=== PATIENT | male | born 1975 | race Hispanic/Latino ===

== ENCOUNTER 2021-12-08 20:34 | Emergency (ER) | payer SELFPAY ==
[2021-12-08] MEDS ORDERED: ONDANSETRON 4 MG/2 ML VIAL ONE (23:03)
[2021-12-08 23:18] LABS: Absolute Lymphocytes (CBC) 0.5 K/uL (0.7-4.9); Hematocrit 47.3 % (39.6-49.0); Lymphocytes % 3.6 % (15.3-44.8); RBC Red Blood Cell Count 5.43 M/uL (4.33-5.43)
[2021-12-08 23:34] LABS: Albumin 4.3 g/dL (3.4-5.0); Bilirubin Total 1.1 mg/dL (0.2-1.0); Protein, Total 7.9 g/dL (6.4-8.2)
[2021-12-08 23:35] LABS: Potassium 4.4 mmol/L (3.5-5.1)
[2021-12-08] MEDS ORDERED: FAMOTIDINE 20 MG/2 ML VIAL IV ONE (23:49)
[2021-12-08] MEDS ORDERED: MORPHINE 4 MG/ML SYR ONE (23:49)
[2021-12-08] MEDS ORDERED: NA CHLORIDE 0.9% 1,000 ML ONE (23:50)
--- NOTE | 2021-12-09 02:57 | EDPHYS ---
Physician Documentation [facility] Name: Mike Cotter Age: 46 yrs Sex: Male : 1975 Arrival Date: 12/08/2021 Time: 20:37 Bed 24 Private MD: ED Physician Davin Salas HPI: 12/09 07:53 This 46 yrs old Male presents to ER via Wheelchair with complaints of kdr Abdominal Pain, Vomiting/Diarrhea. 07:53 The patient presents to the emergency department with nausea, that is mild, vomiting, kdr that is intermittent, diarrhea, that is intermittent, abdominal pain, of the abdomen diffusely, described as achy, burning, crampy, intermittent, vague,\E\ waxing and waning, and does not radiate. Onset: The symptoms/episode began/occurred suddenly, just prior to arrival. Possible causes: bad food exposure, Seafood at work. Then an hour later he started to have nausea vomiting and diarrhea. The symptoms are aggravated by food , The symptoms are alleviated by nothing. Associated signs and symptoms: The patient has no apparent associated signs or symptoms. Severity of symptoms: At their worst the symptoms were mild moderate just prior to arrival, in the emergency department the symptoms have improved markedly. The patient has not experienced similar symptoms in the past. The patient has not recently seen a physician. Historical: - Allergies: 12/08 21:47 No Known Allergies; al4 - Immunization history:: Adult Immunizations up to date, Client reports receiving the 2nd dose of the Covid vaccine, moderna. - Social history:: Smoking status: Patient denies any tobacco usage or history of. ROS: 12/09 07:53 Constitutional: Negative for fever, chills, and weight loss, Eyes: Negative for injury, kdr pain, redness, and discharge, Neck: Negative for injury, pain, and swelling, Cardiovascular: Negative for chest pain, palpitations, and edema, Respiratory: Negative for shortness of breath, cough, wheezing, and pleuritic chest pain, Back: Negative for injury and pain, : Negative for injury, bleeding, discharge, and swelling, MS/Extremity: Negative for injury and deformity, Skin: Negative for injury, rash, and discoloration, Neuro: Negative for headache, weakness, numbness, tingling, and seizure activity. Psych: Negative for depression, anxiety, suicide ideation, homicidal ideation, and hallucinations, Allergy/Immunology: Negative for hives, rash, and allergies, Endocrine: Negative for neck swelling, polydipsia, polyuria, polyphagia, and marked weight changes, Hematologic/Lymphatic: Negative for swollen nodes, abnormal bleeding, and unusual bruising. Abdomen/GI: Positive for abdominal pain, nausea, vomiting, and diarrhea, Negative for abdominal cramps, abdominal distension, anorexia, dysphagia, black/tarry stool, rectal pain, rectal bleeding, bowel incontinence. Exam: 07:53 Constitutional: This is a well developed, well nourished patient who is awake, alert, kdr and in no acute distress. Head/Face: Normocephalic, atraumatic. Eyes: Pupils equal round and reactive to light, extra-ocular motions intact. Lids and lashes normal. Conjunctiva and sclera are non-icteric and not injected. Cornea within normal limits. Periorbital areas with no swelling, redness, or edema. Neck: Trachea midline, no thyromegaly or masses palpated, and no cervical lymphadenopathy. Supple, full range of motion without nuchal rigidity, or vertebral point tenderness. No Meningismus. Chest/axilla: Normal chest wall appearance and motion. Nontender with no deformity. No lesions are appreciated. Cardiovascular: Regular rate and rhythm with a normal S1 and S2. No gallops, murmurs, or rubs. Normal PMI, no JVD. No pulse deficits. Respiratory: Lungs have equal breath sounds bilaterally, clear to auscultation and percussion. No rales, rhonchi or wheezes noted. No increased work of breathing, no retractions or nasal flaring. Back: No spinal tenderness. No costovertebral tenderness. Full range of motion. Skin: Warm, dry with normal turgor. Normal color with no rashes, no lesions, and no evidence of cellulitis. MS/ Extremity: Pulses equal, no cyanosis. Neurovascular intact. Full, normal range of motion. Neuro: Awake and alert, GCS 15, oriented to person, place, time, and situation. Cranial nerves II-XII grossly intact. Motor strength 5/5 in all extremities. Sensory grossly intact. Cerebellar exam normal. Normal gait. Psych: Awake, alert, with orientation to person, place and time. Behavior, mood, and affect are within normal limits. 07:53 Abdomen/GI: Inspection: abdomen appears normal, Bowel sounds: diminished, in all quadrants, Palpation: soft, mild abdominal tenderness, in the abdomen diffusely, rebound tenderness, is not appreciated, voluntary guarding, is not appreciated, involuntary guarding, is not appreciated. Vital Signs: 12/08 21:43 BP 97 / 72; Pulse 87; Resp 20 S; Temp 97.9; Pulse Ox 98% on R/A; Weight 79.38 kg (R); al4 Height 5 ft. 8 in. (172.72 cm) (R); 22:55 BP 121 / 86; Pulse 99; Resp 18; Pulse Ox 100% on R/A; ss7 23:45 BP 108 / 75; Pulse 101; Resp 18; Pulse Ox 96% on R/A; ss7 12/09 01:40 BP 104 / 78; Pulse 93; Resp 16; Pulse Ox 95% on R/A; mw2 03:17 BP 115 / 73; Pulse 101; Resp 16 S; Temp 99.8(TE); Pulse Ox 98% on R/A; bb 12/08 21:43 Body Mass Index 26.61 (79.38 kg, 172.72 cm) al4 MDM: 02:57 Patient medically screened. kdr 07:53 Data reviewed: vital signs, nurses notes, lab test result(s), radiologic studies. kdr Counseling: I had a detailed discussion with the patient and/or guardian regarding: the historical points, exam findings, and any diagnostic results supporting the discharge/admit diagnosis, lab results, radiology results, the need for outpatient follow up. 12/08 22:54 Order name: CBC with Diff; Complete Time: 23:38 7 12/08 22:54 Order name: CMP; Complete Time: 23:38 ss7 12/08 22:54 Order name: Lipase; Complete Time: 23:38 7 12/08 22:59 Order name: Flu [facility] 12/09 00:17 Order name: CT Abd/Pelvis - IV Contrast Only kdr 12/08 22:54 Order name: IV Saline Lock; Complete Time: 22:57 7 12/08 22:54 Order name: Labs collected and sent; Complete Time: 22:57 ss7 Administered Medications: 12/08 23:05 Drug: Zofran (Ondansetron) 4 mg Route: IVP; Site: right antecubital; ss7 23:55 Drug: morphine 4 mg Route: IVP; Site: right antecubital; ss7 23:55 Drug: NS 0.9% 1000 ml Route: IV; Rate: 1 bolus; Site: right antecubital; ss7 23:58 Drug: Pepcid (famotidine) 20 mg Route: IVP; Site: right antecubital; ss7 Disposition Summary: 12/09/21 02:57 Discharge Ordered Location: Home kdr Problem: new kdr Symptoms: have improved kdr Condition: Stable kdr Diagnosis - Abdominal pain, Generalized kdr - Upper abdominal pain, unspecified kdr - Vomiting kdr - Nausea with vomiting, unspecified kdr Followup: kdr - With: Private Physician - When: 2 - 3 days - Reason: If symptoms return, Further diagnostic work-up, Recheck today's complaints, Continuance of care, Re-evaluation by your physician Discharge Instructions: - Discharge Summary Sheet kdr - Nausea and Vomiting, Adult kdr - Abdominal Pain, Adult, [id number] kdr Forms: - Medication Reconciliation Form kdr - Thank You Letter kdr - Antibiotic Education kdr - Prescription Opioid Use kdr Prescriptions: - Zofran 4 mg Oral Tablet - take 1 tablet by ORAL route every 4-6 hours As needed; 16 tablet; Refills: 0, kdr Product Selection Permitted - Pepcid 20 mg Oral Tablet - take 1 tablet by ORAL route every 12 hours As needed; 116 tablet; Refills: 0, kdr Product Selection Permitted Signatures: Dispatcher [employer] Davin Farfan MD MD kdr Ledbetter, Alexis al4 Smith, Shana RN RN ss7
--- NOTE | 2021-12-09 02:57 | ER ---
Nurse's Notes [facility] Name: Mike Cotter Age: 46 yrs Sex: Male : 1975 Arrival Date: 12/08/2021 Time: 20:37 Bed 24 Private MD: Diagnosis: Abdominal pain, Generalized;Upper abdominal pain, unspecified;Vomiting;Nausea with vomiting, unspecified Presentation: 12/08 21:43 Chief complaint: Patient states: ate seafood at work today and 1 hour later patient was al4 throwing up with diarrhea, patient feels fatigued, and pain in stomach. Coronavirus screen: Vaccine status: Patient reports receiving the 2nd dose of the covid vaccine. moderna. Ebola Screen: No symptoms or risks identified at this time. Initial Sepsis Screen: Does the patient meet any 2 criteria? No. Patient's initial sepsis screen is negative. Does the patient have a suspected source of infection? No. Patient's initial sepsis screen is negative. Risk Assessment: Do you want to hurt yourself or someone else? Patient reports no desire to harm self or others. Onset of symptoms was December 08, 2021. 21:43 Method Of Arrival: Wheelchair al4 21:43 Acuity: SPARKLE 3 al4 Triage Assessment: 21:47 General: Appears in no apparent distress. uncomfortable, Behavior is calm, cooperative. al4 Pain: Complains of pain in abdomen. Neuro: Level of Consciousness is awake, alert, obeys commands, Oriented to person, place, time, situation. Cardiovascular: Capillary refill < 3 seconds Patient's skin is warm and dry. Respiratory: Airway is patent Respiratory effort is unlabored, Respiratory pattern is regular. GI: Reports diarrhea, nausea, vomiting. Musculoskeletal: Circulation, motion, and sensation intact. Historical: - Allergies: 21:47 No Known Allergies; al4 - Immunization history:: Adult Immunizations up to date, Client reports receiving the 2nd dose of the Covid vaccine, moderna. - Social history:: Smoking status: Patient denies any tobacco usage or history of. Screenin:57 Abuse screen: Denies threats or abuse. Nutritional screening: No deficits noted. ss7 Tuberculosis screening: No symptoms or risk factors identified. Fall Risk IV access (20 points). Assessment: 22:54 General: Appears ill, Behavior is calm, cooperative, appropriate for age. Pain: ss7 Complains of pain in abdomen. Neuro: No deficits noted. Cardiovascular: Heart tones S1 S2. Respiratory: Breath sounds are clear bilaterally. GI: Bowel sounds present X 4 quads. Abd is soft Abdomen is tender to palpation in umbilical area, right lower quadrant and left lower quadrant. GI: Reports diarrhea, nausea, vomiting. : No deficits noted. EENT: No deficits noted. Derm: No deficits noted. Musculoskeletal: No deficits noted. 12/09 00:30 Reassessment: Patient is alert, oriented x 3, equal unlabored respirations, skin bb warm/dry/pink. resting quietly awaiting diagnostic results, family at bedside. 03:17 Reassessment: Patient is alert, oriented x 3, equal unlabored respirations, skin bb warm/dry/pink. pt verbalized understanding of and agrees to plan of care discharge instructions given pt ambulated with steady gait to exit accompanied by spouse. Vital Signs: 12/08 21:43 BP 97 / 72; Pulse 87; Resp 20 S; Temp 97.9; Pulse Ox 98% on R/A; Weight 79.38 kg (R); al4 Height 5 ft. 8 in. (172.72 cm) (R); 22:55 BP 121 / 86; Pulse 99; Resp 18; Pulse Ox 100% on R/A; ss7 23:45 BP 108 / 75; Pulse 101; Resp 18; Pulse Ox 96% on R/A; ss7 12/09 01:40 BP 104 / 78; Pulse 93; Resp 16; Pulse Ox 95% on R/A; mw2 03:17 BP 115 / 73; Pulse 101; Resp 16 S; Temp 99.8(TE); Pulse Ox 98% on R/A; bb 12/08 21:43 Body Mass Index 26.61 (79.38 kg, 172.72 cm) al4 ED Course: 12/08 20:37 Patient arrived in ED. es 21:47 Triage completed. al4 21:47 Arm band placed on right wrist. al4 22:41 Krystina Travis, TORIBIO is Primary Nurse. ss7 22:55 Davin Salas MD is Attending Physician. kdr 22:57 Patient has correct armband on for positive identification. Bed in low position. Call ss7 light in reach. Adult w/ patient. Pulse ox on. NIBP on. 22:57 CBC with Diff Sent. ss7 22:57 CMP Sent. ss7 22:57 Lipase Sent. ss7 22:57 No provider procedures requiring assistance completed. Inserted saline lock: 20 gauge ss7 in right antecubital area, using aseptic technique. 23:05 Flu Sent. ss7 23:38 Flu Sent. ss7 12/09 00:07 Report given to TORIBIO Campos. ss7 00:57 CT Abd/Pelvis - IV Contrast Only In Process Unspecified. EDMS 03:17 IV discontinued, intact, bleeding controlled, No redness/swelling at site. Pressure bb dressing applied. Administered Medications: 12/08 23:05 Drug: Zofran (Ondansetron) 4 mg Route: IVP; Site: right antecubital; ss7 23:55 Drug: morphine 4 mg Route: IVP; Site: right antecubital; ss7 23:55 Drug: NS 0.9% 1000 ml Route: IV; Rate: 1 bolus; Site: right antecubital; ss7 23:58 Drug: Pepcid (famotidine) 20 mg Route: IVP; Site: right antecubital; ss7 Outcome: 12/09 02:57 Discharge ordered by . kdr 03:17 Discharged to home ambulatory, with family. bb 03:17 Condition: stable 03:17 Discharge instructions given to patient, Instructed on discharge instructions, follow up and referral plans. medication usage, Demonstrated understanding of instructions, follow-up care, medications, Prescriptions given X 2. 03:18 Patient left the ED. bb Signatures: Dispatcher [employer] EDMS Davin Salas MD MD kdr Salyer, Edna es Ballard, Brenda, RN RN bb Bertrand Escudero mw2 Ethan Root Shana, RN RN ss7
[2021-12-09 03:51] VITALS: BP 115/73; TEMP 99.8; O2SAT 98
--- NOTE | 2021-12-09 21:15 | RAD REPORT ---
EXAM DESCRIPTION: CT - Abdomen Pelvis W Contrast - 12/09/2021 5:04 am CLINICAL HISTORY: 46 years, Male, ABD PAIN COMPARISON: None. TECHNIQUE: Contrast-enhanced images of the abdomen and pelvis were performed utilizing 5 mm slice th ickness at 5 mm interval reconstruction from the lung bases to the ischial tuberosities after the adm inistration of IV contrast. In addition multiplanar reformats in the coronal and sagittal plane were obtained and reviewed. This exam was performed according to our departmental dose-optimization protocol, which includes auto mated exposure control, adjustment of the mA and/or kV according to patient size and/or use of iterat bert reconstruction technique. FINDINGS: The lung bases demonstrate very minimal dependent atelectatic changes posterior CP angles. The liver demonstrated decreased attenuation with the presence of several tiny hypodensities througho ut the right and left hepatic lobe most likely corresponding to perhaps a tiny small cysts although t oo small to characterize by CT criteria. Otherwise the liver, gallbladder, pancreas, spleen and adren al glands demonstrate to be unremarkable, no focal lesions are noted. The kidneys demonstrate normal uptake of contrast media. There is minimal cortical deformity within t he upper/midpole left kidney perhaps suggesting scarring. No evidence for nephrolithiasis and/or hydr onephrosis. Grossly the unopacified stomach, small bowel and large bowel demonstrate to be within normal limits. There is no evidence for bowel dilatation/or free air minimally fluid-filled right site colon. Th e appendix is normal. The urinary bladder demonstrate to be unremarkable. The prostate gland is normal. The aorta demon strate to be normal. There is no retroperitoneal lymphadenopathy. There is no ascites. The rest of the soft tissue and bony structures are within normal limits. There is a small left inguinal hernia c ontaining omentum. IMPRESSION: No acute intra-abdominal process. Small left inguinal hernia containing omentum. Fatty filtration of the liver. Very tiny hepatic cysts Minimal cortical deformity within the mid upper pole left kidney perhaps suggesting scarring. Electronically signed by: Jose Ramon Barboza MD 12/09/2021 1:10 AM CDT Due to temporary technical issues with the PACS/Fluency reporting system, reports are being signed by the in house radiologists without review as a courtesy to insure prompt reporting. The interpreting radiologist is fully responsible for the content of the report.
== END 2021-12-09 03:18 | disposition home or self-care (01) ==
LOC: ER 20:34
DX: R10.84 Generalized abdominal pain (principal); R11.2 Nausea with vomiting, unspecified; R10.10 Upper abdominal pain, unspecified; R19.7 Diarrhea, unspecified
CPT/HCPCS: 36415; 74177; 80053; 83690; 85025; 87804; 96374; 96375; 99284; J2405; J7030; Q9967